=== PATIENT | female | born 1955 | race Caucasian/White ===

== ENCOUNTER → 2021-05-26 10:05 | Outpatient (CLI) | payer MEDICARE, BC, SELFPAY ==
--- NOTE | 2021-05-26 10:10 | MM_ITS ---
PROCEDURE INFORMATION: Exam: Bilateral Screening 3D Mammography Exam date and time: 05/26/2021 10:10 AM Age: 65 years old Clinical indication: Encounter for screening mammogram for malignant neoplasm of breast TECHNIQUE: Imaging protocol: Bilateral screening tomosynthesis and 2D mammography including computer-aided detection (CAD) when performed. COMPARISON: DIAGNOSTIC BILATERAL MAMMOGRAPHY W/ TOMOSYNTHESIS 06/21/2019 11:56 AM FINDINGS: MAMMOGRAPHY: Breast composition: The breast tissue is composed of scattered areas of fibroglandular density. Mass: None. Architectural distortion: None. Calcifications: Clustered calcifications in the posterior third of the right upper outer quadrant Asymmetric density: None. Skin thickening: None. Axillary adenopathy: None. IMPRESSION: Patient to be recalled for spot magnification views of the right breast in the CC and MLO projections for further evaluation of right breast calcifications. ASSESSMENT: BI-RADS Category 0: Incomplete- Need Additional Imaging Evaluation and/or Prior Mammograms for Comparison
== END ==
PROVIDERS: PCP Family Medicine; Visit Provider Family Medicine
DX: Z12.31 Encounter for screening mammogram for malignant neoplasm of breast (principal)
CPT/HCPCS: 77063; 77067

== ENCOUNTER → 2021-06-08 13:32 | Outpatient (CLI) | payer MEDICARE, BC, SELFPAY ==
--- NOTE | 2021-06-08 13:39 | MM_ITS ---
PROCEDURE INFORMATION: Exam: MG Right Diagnostic Breast Tomosynthesis Exam date and time: 06/08/2021 1:39 PM Age: 65 years old Clinical indication: Callback from screening mammogram for calcifications in the posterior right upper outer quadrant. TECHNIQUE: Imaging protocol: Right Diagnostic tomosynthesis and 2D mammography including computer-aided detection (CAD) when performed. Unilateral or bilateral exam. COMPARISON: 1. MG MM DIG SCREENING MAMM BI W/CAD 05/26/2021 10:06 AM 2. MG DIAGNOSTIC BILATERAL MAMMOGRAPHY W/ TOMOSYNTHESIS 06/21/2019 11:56 AM FINDINGS: MAMMOGRAPHY: The new, screening detected 0.5 cm grouping of calcifications in the right upper outer quadrant, posterior depth, appear pleomorphic on spot magnification views. Tissue sampling is recommended. IMPRESSION: Recommend right breast stereotactic core needle biopsy of a suspicious 0.5 cm grouping of pleomorphic calcifications in the posterior right upper outer quadrant. Biopsy specimen radiograph and post procedure diagnostic mammogram may be helpful to confirm adequate sample and biopsy clip placement. ASSESSMENT: BI-RADS Category 4: Suspicious
== END ==
PROVIDERS: PCP Family Medicine; Visit Provider Family Medicine
DX: R92.8 Other abnormal and inconclusive findings on diagnostic imaging of breast (principal)
CPT/HCPCS: 77061; 77065; G0279

== ENCOUNTER → 2021-07-06 09:07 | Outpatient (CLI) | payer MEDICARE, BC, SELFPAY ==
--- NOTE | 2021-07-06 09:08 | MM_ITS ---
FINAL REPORT CLINICAL HISTORY: . Right breast calcs prior mamm 06/08/21 FINDINGS: STEREOTACTIC GUIDED RIGHT BREAST BIOPSY, CLIP PLACEMENT, SPECIMEN RADIOGRAPH AND POST BIOPSY MAMMOGRAM Indication: Suspicious calcifications Findings: The stereotactic guided breast biopsy procedure was explained in detail to the patient including potential risk and benefits. The patient voiced an understanding of the procedure, was given an opportunity to ask questions, after which informed consent was obtained. The patient was positioned upon the stereotactic unit in the supine position. The breast was prepped in the usual sterile fashion. Subcutaneous soft tissues were anesthetized with lidocaine with epinephrine. Initial approach was from superior to inferior. Subsequently, with intermittent stereotactic guidance, the stereotactic biopsy needle was advanced into the breast in the region of the mammographic abnormality corresponding to recent diagnostic mammogram. Multiple vacuum assisted core samples were obtained. Post biopsy imaging and imaging of the initial specimen showed calcifications remaining within the breast. No calcifications were in is seen in the sample tissue. Biopsy was continued with a lateral to medial approach. The breast was prepped in routine sterile fashion and locally anesthetized with 1% lidocaine. Multiple vacuum assisted core biopsies were acquired. Sampling was thought to be adequate and the biopsy clip marker was deployed in the region of biopsy. Additional imaging as detailed below was performed. Specimen radiograph: Calcifications confirmed adequate within the 2nd set of specimens Post procedure routine CC and MLO view mammogram: Post biopsy changes. Biopsy marker clip noted to be in the appropriate location. Patient tolerated the procedure well. No immediatecomplications. IMPRESSION: 1. Technically successful stereotactic guided biopsy of right breast calcifications 2. Biopsy marker clip deployed 3. Post biopsy mammogram obtained as above If histopathology is benign, a short-term mammographic follow-up of the right breast in 6 months is recommended. Authenticated by Cal Kaur MD on 07/08/2021 02:45:55 PM [facility]
--- NOTE | 2021-07-06 09:13 | MM_ITS ---
FINAL REPORT CLINICAL HISTORY: . clip placement , s/p stereotactic bx FINDINGS: MAMMOGRAM RIGHT TECHNIQUE: Spot digital 2-D views with 3-D tomosynthesis COMPARISON: DENSITY: There are scattered areas of fibroglandular density FINDINGS: Post biopsy changes are seen within the right upper outer quadrant. A biopsy marker clip is noted in the right upper outer quadrant. This is in good position with calcifications no longer evident. There is some postbiopsy hemorrhage noted superficial along the biopsy tract. IMPRESSION: Post biopsy changes right breast without evidence of residual calcifications. Biopsy marker clip in good position. RECOMMENDATION: Pending histopathology results. If pathology is benign short-term mammographic follow-up recommended in 6 months. Authenticated by Cal Kaur MD on 07/08/2021 02:42:40 PM [facility]
--- NOTE | 2021-07-06 09:13 | MM_ITS ---
FINAL REPORT CLINICAL HISTORY: . specimen, s/p stereo bx FINDINGS: Specimen radiograph History: Stereotactic biopsy Findings: 2 separate specimen radiographs were acquired following stereotactic biopsy of right breast. Examination shows the calcifications of interest within 2 of the core specimens. This corresponded to the 2nd set of specimen radiographs. IMPRESSION: Calcifications of interest contained within specimen radiograph Authenticated by Cal Kaur MD on 07/08/2021 02:38:55 PM [facility]
== END ==
PROVIDERS: PCP Family Medicine; Visit Provider Surgery
DX: R92.8 Other abnormal and inconclusive findings on diagnostic imaging of breast (principal)
CPT/HCPCS: 19081; 19082; 76098; 77065; 88305

== ENCOUNTER → 2021-12-24 13:41 | Outpatient (CLI) | payer MEDICARE, BC, SELFPAY ==
--- NOTE | 2021-12-24 13:41 | MM_ITS ---
PROCEDURE INFORMATION: Exam: MG Right Diagnostic Breast Tomosynthesis Exam date and time: 12/24/2021 1:39 PM Age: 65 years old Clinical indication: Short-term radiographic followup; Right breast TECHNIQUE: Imaging protocol: Right Diagnostic tomosynthesis and 2D mammography including computer-aided detection (CAD) when performed. Unilateral or bilateral exam. COMPARISON: 1. MG MM CLIP PLACEMENT RT 07/06/2021 10:42 AM 2. MG MM SURGICAL SPECIMEN RT 07/06/2021 10:42 AM FINDINGS: MAMMOGRAPHY: The breast tissue is composed of scattered areas of fibroglandular density. There is no stellate mass, architectural distortion or suspicious microcalcifications to suggest malignancy. A clip alexander the site of prior biopsy in the right upper outer quadrant. No skin thickening or axillary adenopathy. IMPRESSION: No mammographic evidence of malignancy. Correlation with histology is recommended.Annual bilateral mammographic screening is recommended in 6 months if the biopsy was benign ASSESSMENT: BI-RADS Category 1: Negative
== END ==
PROVIDERS: PCP Family Medicine; Visit Provider Surgery
DX: R92.8 Other abnormal and inconclusive findings on diagnostic imaging of breast (principal)
CPT/HCPCS: 77061; 77065; G0279

== ENCOUNTER 2022-06-05 20:04 | Inpatient (IN) | payer MEDICARE, BC, SELFPAY ==
[2022-06-05] VITALS (7 sets, daily range): BP systolic 157–219; BP diastolic 93–138; PULSE 66–88; RESP 14–18; TEMP 36.6; O2SAT 96–98; BMI 21.6
--- NOTE | 2022-06-05 20:07 | HMH.EDGENADL ---
Discharge Plan Disposition Patient Disposition: Admitted As Inpatient Condition: Fair Chief Complaint: Headache Prescriptions Prescriptions: No Action atorvastatin 10 mg tablet 10 mg PO DAILY Label Comments: TAKE 1 TABLET BY MOUTH ONCE DAILY FOR 90 DAYS alendronate 70 mg tablet 70 mg PO WEEKLY Label Comments: TAKE 1 TABLET BY MOUTH ONCE A WEEK lisinopril 10 mg tablet 10 mg PO DAILY Label Comments: TAKE 1 TABLET BY MOUTH ONCE DAILY Referrals Follow up/Referrals: Daniela Jones MD [Primary Care Provider] - See instructions Clinical Impressions Clinical Impression: Non-ST elevation (NSTEMI) myocardial infarction, Headache Discharge ED Provider: Skip Smiley General Adult HPI General Chief complaint: Headache Stated complaint: RAMÍREZ nausa,BP high Time Seen by Provider: 06/05/22 20:07 History of Present Illness HPI narrative: 66-year-old female, history of hypertension, well controlled on lisinopril 10 mg. She presents today with sudden onset occipital headache rated as 10 out of 10 at onset currently 7 out of 10. No treatments prior to arrival though she did take ibuprofen earlier for her back which was hurting. She is not on anticoagulant. She does have a family history of spontaneous intracerebral hemorrhage, her mother had this at 59 and . She denies blurry or double vision, vomiting but does report some nausea. Denies neck pain, fevers or any head trauma. Related Data Home Medications Medication Instructions Recorded Confirmed alendronate 70 mg tablet 70 mg PO WEEKLY bones 06/05/22 06/05/22 atorvastatin 10 mg tablet 10 mg PO DAILY High cholesterol 06/05/22 06/05/22 lisinopril 10 mg tablet 10 mg PO DAILY High blood pressure 06/05/22 06/05/22 Allergies Allergy/AdvReac Type Severity Reaction Status Date / Time No Known Allergies Allergy Verified 07/19/21 10:11 [facility] Disclaimer: The information contained in this section may have been updated after the patient was seen, as this information can be updated by other users. Social History Smoking Status: Never smoker alcohol intake: never substance use type: denies use current occupational status: other Travel in the last 8 weeks: None ROS Obtained: Yes All systems reviewed & no additional complaints except as documented Physical Exam General General appearance: alert and in no apparent distress Head Head exam: atraumatic, normocephalic and normal inspection Eye Eye exam: Present normal appearance, PERRL and EOMI ENT ENT exam: Present normal exam, normal oropharynx, mucous membranes moist, TM's normal bilaterally and normal external ear exam Neck Neck exam: Present normal inspection, full ROM and trachea midline; Absent meningismus or lymphadenopathy Chest Chest inspection: Present normal inspection and symmetric chest wall rise; Absent tenderness Respiratory Respiratory exam: Present normal lung sounds bilaterally; Absent respiratory distress Cardiovascular Cardiovascular exam: Present regular rate and normal rhythm; Absent JVD Abdominal Exam Abdominal exam: Present soft and normal bowel sounds; Absent distention, tenderness or guarding Extremities Exam Extremities exam: Present normal inspection, full ROM and normal capillary refill; Absent calf tenderness Back Exam Back exam: Present normal inspection; Absent tenderness Neurological Exam Neurological exam: Present alert and oriented X3 Psychiatric Psychiatric exam: Present normal affect and normal mood Skin Skin exam: Present warm, dry, intact and normal color Lymphatic Lymphatic Findings: no adenopathy Medical Decision Making Medical Records Medical records reviewed: Yes I reviewed the patient's medical records. [place] Inquiry Pt receiving controlled substance: No Vital Signs: 06/05/22 20:15 06/05/22 20:24 06/05/22 20:29 Temperature 98 F 98 F Temperature Sourc
--- NOTE | 2022-06-05 20:14 | PC.NURSE ---
called radiology, would like CT head STAT.
--- NOTE | 2022-06-05 20:14 | ECG_ITS ---
APPROVED REPORT Exam: Resting ECG HR:84 bpm ECG Measurements Heart Rate 84 AXES NM 152 P 75 QRSd 92 QRS 56 QT 370 T 14 QTc 411 Conclusion SINUS RHYTHM POSSIBLE RIGHT ATRIAL ENLARGEMENT [0.25mV P-WAVE] ST DEVIATION AND MODERATE T-WAVE ABNORMALITY, CONSIDER INFERIOR ISCHEMIA [-0.1+ mV T-WAVE IN II/aVF] ABNORMAL ECG UNCONFIRMED REPORT Electronically signed by : Tomas Mccain MD 06/06/2022 21:46:12
--- NOTE | 2022-06-05 20:14 | CT_ITS ---
PROCEDURE INFORMATION: Exam: CT Head Without Contrast Exam date and time: 06/05/2022 8:21 PM Age: 66 years old Clinical indication: Stroke-like symptoms; Headache; Additional info: Head injury, headache posterior , elevated BP TECHNIQUE: Imaging protocol: Computed tomography of the head without contrast. Radiation optimization: All CT scans at this facility use at least one of these dose optimization techniques: automated exposure control; mA and/or kV adjustment per patient size (includes targeted exams where dose is matched to clinical indication); or iterative reconstruction. Other technique: STROKE PROTOCOL was implemented. COMPARISON: No relevant prior studies available. FINDINGS: Brain: There is no evidence of infarct. There is no hemorrhage or extra-axial collection. There is no evidence of subarachnoid hemorrhage. There is no evidence of cerebral edema. Cerebral ventricles: There is no hydrocephalus. Paranasal sinuses: Visualized sinuses are unremarkable. No fluid levels. Mastoid air cells: There is extensive opacification of the right mastoid air cells. No coalescence or bone erosion. Bones/joints: No fracture Soft tissues: Unremarkable. IMPRESSION: No intracranial lesion or injury ASSESSMENT: ASPECTS (Strum Stroke Program Early CT Score) is 10.
--- NOTE | 2022-06-05 20:14 | XR_ITS ---
PROCEDURE INFORMATION: Exam: XR Chest Exam date and time: 06/05/2022 8:36 PM Age: 66 years old Clinical indication: Pain; Chest pressure; Additional info: Sob/cp TECHNIQUE: Imaging protocol: Radiologic exam of the chest. Views: 1 view. COMPARISON: No relevant prior studies available. FINDINGS: Lungs: Unremarkable. No consolidation. Pleural spaces: Unremarkable. No pleural effusion. No pneumothorax. Heart/Mediastinum: Unremarkable. No cardiomegaly. Bones/joints: Unremarkable. IMPRESSION: No acute findings.
--- NOTE | 2022-06-05 20:24 | PC.NURSE ---
Pt gone to RAD
--- NOTE | 2022-06-05 20:26 | PC.NURSE ---
Pt back from RAD
[2022-06-05 20:33] LABS: Coronavirus 19, PCR Not Detected (NotDetected); Influenza A, PCR Not Detected (NotDetected); Influenza B, PCR Not Detected (NotDetected)
--- NOTE | 2022-06-05 20:36 | PC.NURSE ---
Patient given 10mg labetolol IV. Patient tolerated the medication well.
[2022-06-05 20:37] LABS: Basophils # 0.1 K/mm3 (0-0.2); Basophils % 0.9 % (0.1-2.0); Eosinophils # 0.2 K/mm3 (0.0-0.4); Eosinophils % 2.6 % (0.1-12.0); Hematocrit 44.7 % (37.0-47.0); Hemoglobin 14.7 g/dL (12.2-16.2); Lymphocytes # 2.8 K/mm3 (0.7-4.5); Lymphocytes % 31.9 % (10-50); Mean Corpuscular HGB Conc 32.9 g/dL (31.8-35.4); Mean Corpuscular Hemoglobin 31.7 pg (27.0-31.2); Mean Corpuscular Volume 96.2 fl (81-99); Mean Platelet Volume 8.1 fl (7.4-10.4); Monocytes # 0.5 K/mm3 (0.1-1.0); Monocytes % 6.1 % (1.7-9.3); Neutrophils # 5.2 K/mm3 (1.8-7.8); Neutrophils % 58.6 % (37.0-80.0); Platelet Count 303 K/mm3 (142-424); Red Blood Count 4.65 M/mm3 (4.20-5.40); Red Cell Distribution Width 13.2 % (11.5-17.5); White Blood Count 8.9 K/mm3 (4.8-10.8)
[2022-06-05 20:40] LABS: Chloride 103 mmol/L (98-107); Potassium 3.4 mmoL/L (3.5-5.1); Sodium 141 mmol/L (136-145)
[2022-06-05 20:42] LABS: Blood Urea Nitrogen 15 mg/dl (7-17); Creatinine Clearance Estimated 52 mL/min (50-200); Estimated Glomerular Filt Rate 84 ml/min (>60); GFR (African American) 101 ML/MIN (>60)
[2022-06-05 20:43] LABS: Alanine Aminotransferase 27 U/L (12-78); Albumin Level 4.7 g/dl (3.5-5.0); Albumin/Globulin Ratio 1.4 (1.1-1.8); Alkaline Phosphatase 75 U/L (38-126); Anion Gap 12.4 mEq/L (5-15); Aspartate Amino Transferase 33 U/L (14-36); Bilirubin,Total 0.4 mg/dl (0.2-1.3); Calcium 9.4 mg/dl (8.4-10.2); Carbon Dioxide 29 mmol/L (22.0-30.0); Globulin 3.4 g/dL (1.3-3.2); Glucose 115 mg/dl (74-100); Total Protein,Serum 8.1 g/dl (6.3-8.2)
[2022-06-05 20:55] LABS: Troponin I 0.03 ng/ml (0.00-0.034)
--- NOTE | 2022-06-05 21:45 | PC.NURSE ---
Rechecked pt condition. No needs or complaints voiced at this time.
--- NOTE | 2022-06-05 22:34 | PC.NURSE ---
Pt ambulatory to bathroom and back to bed. Pt updated on POC. No needs voiced at this time.
--- NOTE | 2022-06-05 23:23 | ECG_ITS ---
APPROVED REPORT Exam: Resting ECG HR:73 bpm ECG Measurements Heart Rate 73 AXES TX 163 P 77 QRSd 93 QRS 72 QT 412 T 82 QTc 437 Conclusion SINUS RHYTHM POSSIBLE RIGHT ATRIAL ENLARGEMENT [0.25mV P-WAVE] BORDERLINE ECG UNCONFIRMED REPORT Electronically signed by : Tomas Mccain MD 06/07/2022 19:13:08
[2022-06-05 23:24] LABS: Troponin I 1.49 ng/ml (0.00-0.034)
--- NOTE | 2022-06-05 23:25 | PC.NURSE ---
Rodney from lab called critical troponin of 1.49. notified.
--- NOTE | 2022-06-05 23:29 | PC.NURSE ---
Dr. Cassidy paged
--- NOTE | 2022-06-05 23:30 | PC.NURSE ---
Dr. Smiley speaking with Dr. Cassidy
--- NOTE | 2022-06-05 23:40 | PC.NURSE ---
Both EKG's sent to Dr. Cassidy via [facility]I phone
--- NOTE | 2022-06-05 23:52 | PC.NURSE ---
Dr. Smiley s/w Dr. Cassidy regarding pt & the transmitted EKGs
[2022-06-06] VITALS (23 sets, daily range): BP systolic 115–159; BP diastolic 74–109; PULSE 60–77; RESP 15–20; TEMP 36.4–36.7; O2SAT 93–100; BMI 22.0
--- NOTE | 2022-06-06 00:35 | PC.NURSE ---
Hospitalist at bedside s/w pt
--- NOTE | 2022-06-06 01:04 | EXP.HP ---
History of Present Illness *Admission Date: 06/06/22 *Reason for visit:: Mi . chest pain *History of present illness: Ms. Manzo is a 66-year-old female, history of hypertension, well controlled on lisinopril 10 mg per her report. Presented with complaint of sudden onset of occipital headache. No treatment prior to returning to the ER. Was concerned because her mother from intracranial hemorrhage in her 50s. Patient denied any chest pain, shortness of breath, nausea or vomiting. No head trauma, fever, neurologic deficits. Blood pressure severely elevated on arrival 213/123. EKG with ST segment changes. CT of head not concerning for any intracranial pathology. Initial troponin 0.03. Medicine consulted for admission of hypertensive emergency, serial troponins, and monitoring overnight. Cardiology consulted, concern for proximal LAD lesion given severe hypertension and changes on EKG. Recommended admission. Blood pressure showed improvement with labetalol, nitroglycerin, and resumption of home regimen. [facility] Disclaimer: The information contained in this section may have been updated after the patient was seen, as this information can be updated by other users. Medical History Hyperlipidemia Hypertension Irritable bowel syndrome (IBS) Migraine Urinary tract infection Surgical History History of colonoscopy History of mandibular surgery History of placement of ear tubes Family History Family history of acute congestive heart failure Family history of cancer Breast cancer Family history of hypertension Family history of hypothyroidism Family history of diabetes mellitus type II Family history of multiple sclerosis Family history of myocardial infarction Family history of hyperlipidemia Social History Smoking Status: Never smoker alcohol intake: never substance use type: denies use current occupational status: retired Travel in the last 8 weeks: None Review of Systems Review of Systems Review of systems (narrative): 14 point review of systems performed, pertinent positives and negatives as per HPI Constitutional Constitutional: Reports system reviewed and no additional complaints, except as documented and Reports headache(s) Eyes Eyes: Reports system reviewed and no additional complaints, except as documented ENT Ears, Nose, Mouth, and Throat: Reports system reviewed and no additional complaints, except as documented and Reports headache(s) *Cardiovascular Cardiovascular: Reports chest pain and Reports chest pain at rest *Respiratory Respiratory: Reports system reviewed and no additional complaints, except as documented *Gastrointestinal Gastrointestinal: Reports system reviewed and no additional complaints, except as documented *Genitourinary Genitourinary: Reports system reviewed and no additional complaints, except as documented *Musculoskeletal Musculoskeletal: Reports system reviewed and no additional complaints, except as documented Integumentary/Breasts Skin/Breast: Reports system reviewed and no additional complaints, except as documented *Neurologic Neurologic: Reports headache(s) Comments: only symptom at first headache , now some light chest pressure Psychiatric Psychiatric: Reports system reviewed and no additional complaints, except as documented Comments: having no issues Endocrine Endocrine: Reports system reviewed and no additional complaints, except as documented Hematologic/Lymphatic Hematologic/Lymphatic: Reports system reviewed and no additional complaints, except as documented Allergic/Immunologic Allergic/Immunologic: Reports system reviewed and no additional complaints, except as documented Meds Home Medications and Allergies Home Medications Medication Instruc
--- NOTE | 2022-06-06 01:06 | PC.NURSE ---
pt educated on new medications: Plavix, Nitro paste, Tylenol, and Lovenox.
[2022-06-06 02:33] LABS: Troponin I 2.34 ng/ml (0.00-0.034)
[2022-06-06 06:49] LABS: Basophils # 0.1 K/mm3 (0-0.2); Basophils % 0.6 % (0.1-2.0); Eosinophils # 0.1 K/mm3 (0.0-0.4); Eosinophils % 1.2 % (0.1-12.0); Hematocrit 40.4 % (37.0-47.0); Lymphocytes % 21.8 % (10-50); Mean Corpuscular HGB Conc 32.7 g/dL (31.8-35.4); Mean Corpuscular Hemoglobin 31.9 pg (27.0-31.2); Mean Corpuscular Volume 97.3 fl (81-99); Mean Platelet Volume 8.1 fl (7.4-10.4); Monocytes # 0.6 K/mm3 (0.1-1.0); Monocytes % 6.4 % (1.7-9.3); Neutrophils # 6.3 K/mm3 (1.8-7.8); Neutrophils % 70.1 % (37.0-80.0); Platelet Count 307 K/mm3 (142-424); Red Blood Count 4.15 M/mm3 (4.20-5.40); Red Cell Distribution Width 13.2 % (11.5-17.5)
--- NOTE | 2022-06-06 06:53 | HMH.PHAINT1 ---
Pharmacy Intervention Comments: MEDICATION RECONCILIATION COMPLETED ON PATIENT USING EXTERNAL FILL HISTORY FROM PHARMACY. -PADMINI MACDONALD, SAMD
[2022-06-06 06:59] LABS: Hemoglobin 13.2 g/dL (12.2-16.2)
[2022-06-06 07:15] LABS: Alanine Aminotransferase 23 U/L (12-78); Albumin/Globulin Ratio 1.5 (1.1-1.8); Alkaline Phosphatase 61 U/L (38-126); Anion Gap 9.5 mEq/L (5-15); Aspartate Amino Transferase 41 U/L (14-36); Bilirubin,Total 0.4 mg/dl (0.2-1.3); Blood Urea Nitrogen 13 mg/dl (7-17); Calcium 8.5 mg/dl (8.4-10.2); Carbon Dioxide 29 mmol/L (22.0-30.0); Chloride 105 mmol/L (98-107); Creatinine Clearance Estimated 52 mL/min (50-200); Estimated Glomerular Filt Rate 84 ml/min (>60); GFR (African American) 101 ML/MIN (>60); Globulin 2.7 g/dL (1.3-3.2); Glucose 122 mg/dl (74-100); Potassium 3.5 mmoL/L (3.5-5.1); Sodium 140 mmol/L (136-145); Total Protein,Serum 6.7 g/dl (6.3-8.2)
--- NOTE | 2022-06-06 07:27 | EXP.CARD.CON ---
History of Present Illness History of Present Illness Consult date: 06/06/22 Requesting physician: Marcos Bailon Consult reason: chest pain Chief complaint: NSTEMI Additional Medical History:: 1. Hypertension 2. Hyperlipidemia 3. History of migraine headache 4. Family history of early heart disease in her brother who at age 49 and her father (both smokers) 6. CAD with presenting non-STEMI, 06/05/2022 7. Irritable bowel syndrome History of present illness: 66-year-old female, not on anticoagulation, presents with complaints of sudden onset occipital headache approximately 10 out of 10 at onset, currently 7 out of 10, no treatments prior to arrival.? She states she was leaving judaism and felt headache come on suddenly.? She does report getting migraines periodically although this feels different in nature and severity.? She is noted to be markedly hypertensive and usually is Well controlled on lisinopril 10.? She denies chest pain, shortness of breath or other symptoms, findings do raise concern for spontaneous anterior cranial hemorrhage such as subarachnoid especially given that patient has family history of cerebral aneurysm and spontaneous ICH in her mother at 59 years old.? EKG does demonstrate some ST segment and T wave changes prominent Q-wave in V2 with some elevation although not in contiguous leads, there is diffuse ST depression noted.? Monitoring blood pressure closely, notified CT to obtain scan expeditiously and she is going shortly after my assessment.? Also assessing for any signs of hypertensive emergency.? With hypertension she has not noted to be markedly bradycardic so do not think [place] reflex.? She additionally has a GCS of 15 and is in no acute distress currently has no focal neurologic deficits or subjective deficits such as blurry or double vision or sensory issues.? I reviewed head CT immediately upon completion do not see any evidence of subdural or large subarachnoid.? Blood pressure was approximately 213/123 heart rate is 84, given 2 mg of IV labetalol we will continue to monitor 2034, spoke with radiologist to confirm no evidence of subarachnoid hemorrhage or any other acute pathology 8: Patient doing well headache improved, blood pressure significantly improved, no active chest pain, given EKG changes had waited on second troponin which was markedly elevated.? Patient still doing well without chest pain, repeated EKG which appears improved relative to previous but does exhibit dynamic changes, she is developing biphasic T waves in V1 only, still some ST depression no acute ST elevation and the mild elevation and prominent T wave in V2 appears to have resolved.? Given this, raises higher suspicion for acute coronary syndrome despite the absence of chest pain.? I discussed case with Dr. Cassidy who reviewed the EKGs as well, and there is concern about lesion to the left anterior descending artery which can sometimes present with adrenergic crisis markedly elevated blood pressure which obscured the initial picture.? She had been given 324 mg of aspirin, will also load with 300 mg platelet, initiate treatment dose Lovenox twice daily, and start on high intensity statin.? Will refer for admission to the hospitalist, plan is for heart catheterization in the morning. The above per Skip Smiley MD (ER physician) Events as noted above confirmed with the patient. She does relate in retrospect some pressure or heaviness in the chest recently described as like a cat, dog her small child was laying on the chest. No chest pain this morning. She still has a mild headache rated as a 4 out of 10. Longtime hypertensive, treated Hyperlipidemia, on medication Non-smoker Nondiabetic Family history of early coronary artery disease in both her father and brother Admission EKG is sinus rhythm with Biphasic P wave in V1, isolated Q wave in V2 and ST-T abnormalities in the inferior lateral leads. Peak troponin at this time noted to be 2.34 PFSH PFSH D
--- NOTE | 2022-06-06 07:51 | CA_ITS ---
APPROVED REPORT EXAM: Comprehensive 2D, Doppler, and color-flow Echocardiogram [employer]wall Security Engineer: Sierra Tafoya RVT Ht: 5 ft 4 in Wt: 132lbs BSA: 1.64 BP: 115/84 mmHg Indications: NSTEMI,HTN,BRADYCARDIA,CAD,HLD 2D Dimensions LVOT 1.79 cm (M/F) 1.5-2.5 LA Volume 16.70 mL LA Volume Index 10.18 mL/m2 (M/F) 16-34 M-Mode Dimensions RVDd 2.43 cm (0.9-2.6) LA Diam 2.82 cm (1.9-4.0) LVDd 3.96 cm (3.5-5.7) Ao Diam 3.03 cm (2.0-3.7) LVDs 1.75 cm (3.5-5.7) IVSd 1.00 cm (0.6-1.1) PWd 0.82 cm (0.6-1.1) EF (Teich) 86.80% FS 55.80% EDV (Teich) 68.30 mL TAPSE 2.09 (<1.7) ESV (Teich) 9.00 mL LV Diastology E Decel Time 217.00 (160-240 msec) E/A Ratio 0.7 MED E' 4.80 (< 7 cm/sec) E'/MED E' Ratio 15.37 (>14) LAT E' 4.70 (<10 cm/sec) E/LAT E' Ratio 15.70 (>14) Aortic Valve AO Peak GR. 6.00 mmHg Mitral Valve MV E Max Robert. 74.00 (40-130 cm/s) MV A Velocity 101.00 (40-130 cm/s) E/A Ratio 0.73 MV Decel. Time 217.00 (160-240 ms) MV PHT 63.00 ms Pulmonary Valve PV Peak Velocity 83.00 (50-150 cm/s) Tricuspid Valve TR P. Velocity 308.00 cm/s RAP Estimate 10.00 mmHg RVSP 48.00 mmHg Left Ventricle Left atrium is mildly enlarged, left ventricle normal size mild concentric left ventricular hypertrophy, estimated ejection fraction approximately 50%, there is moderate hypokinesis involving the mid to distal septum, and anterior apical wall. Doppler evidence of impaired LV relaxation seen. Right Ventricle Right atrium and right ventricle are normal size and contractility. Aortic Valve Aortic valve is minimally thickened and fibrosed there is no aortic stenosis or aortic insufficiency. Mitral Valve Mitral valve grossly normal, there is trace mitral regurgitation. Tricuspid Valve Tricuspid valve grossly normal, there is trace tricuspid regurgitation, tricuspid regurgitation jet velocity is inadequate for calculation of the right ventricular systolic pressure. Pulmonic Valve Pulmonic valve is poorly visualized. Great Vessels Aortic root is normal size. Inferior vena cava is normal size with normal inspiratory collapse. Pericardium No significant pericardial effusion noted. Conclusion 1. Normal left ventricular size, estimated ejection fraction 50% with segmental wall motion abnormality described above, without evidence of impaired LV relaxation seen 2. Trace mitral and tricuspid regurgitation. 3. No significant pericardial effusion noted. 4. Inferior vena cava is normal size with normal inspiratory collapse. Electronically signed by : David Browning MD 06/07/2022 06:21:00
[2022-06-06 07:55] LABS: Cholesterol 202 mg/dl (140-200); HDL Cholesterol 99 mg/dl (40-60); Triglycerides 54 mg/dl (30-150); VLDL Cholesterol 11 mg/dL (0-40)
[2022-06-06 08:06] LABS: Direct LDL Cholesterol 61.97 mg/dL (100-129)
--- NOTE | 2022-06-06 08:40 | IR_ITS ---
APPROVED REPORT Patient Location: [facility] Operator: JANAE Ge RT (R) PROCEDURES Left heart catheterization Left ventriculogram Selective coronary angiogram INDICATION Acute non-ST elevation myocardial infarction Informed consent was obtained prior to the procedure. COMPLICATIONS None Estimated Blood Loss: Less than 10 ML TECHNIQUE One percent lidocaine used to anesthetize the right anterior aspect of the wrist. The right radial artery was accessed via the Seldinger technique. A 6 Ivorian sheath was placed in the right radial artery. 2.5 mg of verapamil, 800 mcg of nitroglycerin, 1mg Lidocaine and 5000 U Heparin were given through the arterial sheath. The papa catheter was also used to perform left heart catheterization, left ventriculogram and selective coronary angiogram. At the end of the procedure the sheath was removed good hemostasis was achieved using Traclet band, patient was transferred to the postop holding area in stable condition. ANGIOGRAPHIC RESULTS The left main artery Normal The left anterior descending artery Normal The circumflex artery Normal The right coronary artery Dominant normal The WRIGHT ventriculogram reveals Large anterior apical hypokinesis estimate ejection fraction 25 to 30% The left ventricular end-diastolic pressure 25 mmHg IMPRESSION Normal coronary arteries Large anterior apical hypokinesis consistent with classic Takotsubo cardiomyopathy/stress cardiomyopathy Elevated LVEDP PLAN 1. Recommend echocardiogram to better evaluate ejection fraction. If ejection fraction is 35% or less based on echo criteria I would consider LifeVest prior to discharge home 2. Supportive care recommend EWA inhibitor's and beta-blockers Electronically signed by : Carlos Cassidy MD 06/06/2022 11:11:57
[2022-06-07] VITALS: BP 127/81; PULSE 66; PULSE 70; RESP 16; TEMP 36.8; O2SAT 95
[2022-06-07 04:00] VITALS: BP 116/79; PULSE 73; RESP 16; TEMP 36.8; O2SAT 97; BMI 22.5
--- NOTE | 2022-06-07 07:00 | PC.NURSE ---
Pt tegaderm on right radial site had a moderate amount of dried blood on it at beginning of shift. Blood was outlined to monitor. Pt was encouraged to call out if site bled more. On next q2 check the 4x4 had slightly more blood on it. Dsg was reinforced at this time. No c/o have been voiced to staff t/o shift. Call light within reach.
[2022-06-07 07:46] LABS: Basophils # 0.1 K/mm3 (0-0.2); Basophils % 1.1 % (0.1-2.0); Eosinophils # 0.1 K/mm3 (0.0-0.4); Hematocrit 42.6 % (37.0-47.0); Hemoglobin 14.2 g/dL (12.2-16.2); Lymphocytes # 1.9 K/mm3 (0.7-4.5); Lymphocytes % 28.5 % (10-50); Mean Corpuscular HGB Conc 33.4 g/dL (31.8-35.4); Mean Corpuscular Hemoglobin 31.8 pg (27.0-31.2); Mean Corpuscular Volume 95.1 fl (81-99); Mean Platelet Volume 8.2 fl (7.4-10.4); Monocytes # 0.5 K/mm3 (0.1-1.0); Monocytes % 7.7 % (1.7-9.3); Neutrophils # 4.1 K/mm3 (1.8-7.8); Neutrophils % 60.7 % (37.0-80.0); Platelet Count 304 K/mm3 (142-424); Red Blood Count 4.47 M/mm3 (4.20-5.40); Red Cell Distribution Width 13.2 % (11.5-17.5); White Blood Count 6.7 K/mm3 (4.8-10.8)
[2022-06-07 07:52] LABS: Alanine Aminotransferase 19 U/L (12-78); Albumin/Globulin Ratio 1.4 (1.1-1.8); Alkaline Phosphatase 59 U/L (38-126); Anion Gap 9.7 mEq/L (5-15); Aspartate Amino Transferase 32 U/L (14-36); Bilirubin,Total 0.5 mg/dl (0.2-1.3); Blood Urea Nitrogen 16 mg/dl (7-17); Calcium 8.7 mg/dl (8.4-10.2); Carbon Dioxide 27 mmol/L (22.0-30.0); Chloride 106 mmol/L (98-107); Creatinine Clearance Estimated 54 mL/min (50-200); Estimated Glomerular Filt Rate 72 ml/min (>60); GFR (African American) 87 ML/MIN (>60); Globulin 2.8 g/dL (1.3-3.2); Glucose 93 mg/dl (74-100); Potassium 3.7 mmoL/L (3.5-5.1); Sodium 139 mmol/L (136-145); Total Protein,Serum 6.8 g/dl (6.3-8.2)
[2022-06-07 08:00] VITALS: BP 107/77; PULSE 76; PULSE 84; RESP 18; TEMP 37.1; O2SAT 95
--- NOTE | 2022-06-07 10:05 | EXP.CARD.PN ---
Subjective Subjective Date: 06/07/22 Time: 08:30 Principal diagnosis: non-stemi Interval history: This is a 66-year-old white female who presented to the emergency department with headache. She denied any chest pain, pressure, shortness of breath or edema initially. She had an abnormal EKG and had positive troponins. And then later reported that she had some pressure or heaviness in her chest that she described like a cat or dog or may be a small child laying on her chest. The patient underwent left cardiac catheterization yesterday and this showed normal coronary arteries with a large anterior apical hypokinesis with an estimated ejection fraction of 25 to 30% and elevated LVEDP 25 mmHg. Echocardiogram shows an ejection fraction of 50%. This morning she denies any chest pain or pressure. She denies any shortness of breath or edema. She denies any fever, chills, nausea, vomiting, diarrhea, PND or orthopnea. Exam Data for Last 24 hours Vital signs and Labs for Last 24 Hours: Temp Pulse Resp BP Pulse Ox 98.7 F 84 18 107/77 L 95 06/07/22 08:00 06/07/22 08:00 06/07/22 08:00 06/07/22 08:00 06/07/22 08:00 Laboratory Results - last 24 hr 06/07/22 07:14: WBC 6.7 D, RBC 4.47, Hgb 14.2, Hct 42.6, MCV 95.1, MCH 31.8 H, MCHC 33.4, RDW 13.2, Plt Count 304, MPV 8.2, Neut % (Auto) 60.7, Lymph % (Auto) 28.5, [place] % (Auto) 7.7, Eos % (Auto) 2.0, Baso % (Auto) 1.1, Neut # (Auto) 4.1, Lymph # (Auto) 1.9, [place] # (Auto) 0.5, Eos # (Auto) 0.1, Baso # (Auto) 0.1 06/07/22 07:14: Sodium 139, Potassium 3.7, Chloride 106, Carbon Dioxide 27, Anion Gap 9.7, BUN 16, Creatinine 0.80, Estimated Creat Clear 54, Estimated GFR 72, Est GFR ( Amer) 87, Glucose 93, Calcium 8.7, Magnesium 2.0, Total Bilirubin 0.5, AST 32, ALT 19, Alkaline Phosphatase 59, Total Protein 6.8, Albumin 4.0, Globulin 2.8, Albumin/Globulin Ratio 1.4 I & O for Last 24 hours: Intake & Output 06/04/22 06/05/22 06/06/22 06/07/22 23:59 23:59 23:59 23:59 Intake Total 360 / 360 360 / 360 Output Total 552 / 552 Balance -192 / -192 360 / 360 Weight 130 lb 132 lb 7 oz 135 lb 3.2 oz Narrative: Telemetry strip is sinus rhythm. Constitutional Constitutional: no acute distress and average body habitus *Routine HEENT Exam Head: Present normocephalic and atraumatic ENT: Present mucous membranes moist *Routine Neck Exam Neck: Present supple, full ROM and normal carotid upstroke; Absent JVD, carotid bruit or lymphadenopathy *Routine Respiratory Exam Respiratory: Present CTA bilaterally, normal respiratory effort, able to speak in complete sentences and symmetric chest movement *Routine Cardiovascular Exam Cardiovascular: Present RRR, Normal S1 and Normal S2; Absent murmur or gallop *Routine Abdominal Exam Abdominal: Present soft and normoactive bowel sounds; Absent tenderness, distended or organomegaly *Routine Extremities Exam Extremities: Present full ROM, pulses intact and normal capillary refill; Absent cyanosis, clubbing or edema *Routine Skin Exam Skin: Present intact and warm; Absent erythema *Routine Neurological Exam Neurological: Present alert, oriented X3 and CN II-XII intact; Absent sensory deficit or motor deficit Routine Psychiatric Exam Psychiatric: Present normal affect Progress Note: A&P Assessment and plan (1) Hypertension: Status: Acute (2) Non-ST elevation (NSTEMI) myocardial infarction: Status: Acute (3) Headache: Status: Acute (4) Hyperlipidemia: Status: Acute (5) Takotsubo syndrome: Status: Acute Assessment and Plan Assessment and Plan for All Diagnoses:: Plan: 1. This is a 66-year-old female who is status post non-STEMI. She underwent left cardiac catheterization which showed normal coronary arteries with large anterior apical hypokinesis consistent with Takotsubo's cardiomyopathy. No percutaneous intervention was required. Patient will be on aspirin 81 mg daily. 2. Echocardiogram showed an ejection fra
--- NOTE | 2022-06-07 10:09 | EXP.DC.SUM ---
General Admission date:: 06/06/22 Discharge date: 06/07/22 HPI HPI HPI: Ms. Manzo is a 66-year-old female, history of hypertension, well controlled on lisinopril 10 mg per her report. Presented with complaint of sudden onset of occipital headache. No treatment prior to returning to the ER. Was concerned because her mother from intracranial hemorrhage in her 50s. Patient denied any chest pain, shortness of breath, nausea or vomiting. No head trauma, fever, neurologic deficits. Blood pressure severely elevated on arrival 213/123. EKG with ST segment changes. CT of head not concerning for any intracranial pathology. Initial troponin 0.03. Medicine consulted for admission of hypertensive emergency, serial troponins, and monitoring overnight. Cardiology consulted, concern for proximal LAD lesion given severe hypertension and changes on EKG. Recommended admission. Blood pressure showed improvement with labetalol, nitroglycerin, and resumption of home regimen. Hospital Course Hospital Course Hospital Course: The patient is admitted to the medical floor with cardiology consultation. Her troponin trend was positive. Her laboratory studies including CBC and BMP were trended and identified stability. She underwent left heart cath on June 06, 2022 that identified no intervention necessary and concerns with diminished ejection fraction of 35% on the anterior component of her LV. Her echocardiogram identified an ejection fraction of 50%. The patient identified improvement in her headache and staff reported improved blood pressures. She identified improvement and inquired about discharge home. On day of discharge she is accompanied by her and sister. I am accompanied by several members of the multidisciplinary rounds team. She reports no needs at home. Cardiology has recommended discharge medications. She is to follow-up with her PCP in 1 week and cardiology as a scheduled. Exam Data for Last 24 hours Vital signs and Labs for Last 24 Hours: Temp Pulse Resp BP Pulse Ox 98.7 F 84 18 107/77 L 95 06/07/22 08:00 06/07/22 08:00 06/07/22 08:00 06/07/22 08:00 06/07/22 08:00 Laboratory Results - last 24 hr 06/07/22 07:14: WBC 6.7 D, RBC 4.47, Hgb 14.2, Hct 42.6, MCV 95.1, MCH 31.8 H, MCHC 33.4, RDW 13.2, Plt Count 304, MPV 8.2, Neut % (Auto) 60.7, Lymph % (Auto) 28.5, [place] % (Auto) 7.7, Eos % (Auto) 2.0, Baso % (Auto) 1.1, Neut # (Auto) 4.1, Lymph # (Auto) 1.9, [place] # (Auto) 0.5, Eos # (Auto) 0.1, Baso # (Auto) 0.1 06/07/22 07:14: Sodium 139, Potassium 3.7, Chloride 106, Carbon Dioxide 27, Anion Gap 9.7, BUN 16, Creatinine 0.80, Estimated Creat Clear 54, Estimated GFR 72, Est GFR ( Amer) 87, Glucose 93, Calcium 8.7, Magnesium 2.0, Total Bilirubin 0.5, AST 32, ALT 19, Alkaline Phosphatase 59, Total Protein 6.8, Albumin 4.0, Globulin 2.8, Albumin/Globulin Ratio 1.4 I & O for Last 24 hours: Intake & Output 06/04/22 06/05/22 06/06/22 06/07/22 23:59 23:59 23:59 23:59 Intake Total 360 / 360 360 / 360 Output Total 552 / 552 Balance -192 / -192 360 / 360 Weight 58.967 kg 60.073 kg 61.326 kg Constitutional Constitutional: no acute distress *Routine Respiratory Exam Respiratory: Present CTA bilaterally; Absent rhonchi, stridor or wheezes *Routine Cardiovascular Exam Cardiovascular: Present RRR; Absent murmur, gallop or rubs *Routine Extremities Exam Extremities: Absent cyanosis, clubbing or edema *Routine Neurological Exam Neurological: Present alert, oriented X3 and CN II-XII intact Results Data Completed and Pending Labs on day of discharge: Labs from last 24 hours 06/07/22 06/07/22 07:14 07:14 WBC 6.7 D RBC 4.47 Hgb 14.2 Hct 42.6 MCV 95.1 MCH 31.8 H MCHC 33.4 RDW 13.2 Plt Count 304 MPV 8.2 Neut % (Auto) 60.7 Lymph % (Auto) 28.5 [place] % (Auto) 7.7 Eos % (Auto) 2.0 Baso % (Auto) 1.1 Neut # (Auto) 4.1 Lymph # (Auto) 1.9 [place] # (
--- NOTE | 2022-06-07 11:17 | [facility].PHAINT1 ---
Pharmacy Intervention Comments: Discharge medication counseling completed with patient and family. Overviewed new and continued medications, including indications, possible adverse effects, and mitigation strategies. Patient mentioned muscle cramps, which could be related to atorvastatin use. This student advised patient to consult PCP. Patient's family asked whether aspirin is available OTC; this student answered in the affirmative. Patient and family verbalized understanding of the information provided and had no further questions or concerns at this time. -Rosey Barnes, PharmD Candidate 2022
--- NOTE | 2022-06-08 12:53 | CARE MANAGER ---
Contacted patient related to hospital discharge. She states she picked up medication and is aware of follow up appointments. Denies any questions or concerns. RIA Mota
== END 2022-06-07 11:21 | disposition home or self-care (01) | DRG 281 ==
LOC: ER 06-06 00:01 → 2ND 06-06 00:17
PROVIDERS: Internal Medicine; Nurse Practitioner Family; Physician Assistant; Admitting Provider Internal Medicine Adolescent Medicine; Emergency Provider Emergency Medicine; PCP Family Medicine; Visit Provider Family Medicine
PROC: B2111ZZ Fluoroscopy of Multiple Coronary Arteries using Low Osmolar Contrast (ICD-10-PCS; principal; 2022-06-06 12:00)
DX: I21.4 Non-ST elevation (NSTEMI) myocardial infarction (principal); I16.1 Hypertensive emergency; I51.81 Takotsubo syndrome; I10 Essential (primary) hypertension; E78.5 Hyperlipidemia, unspecified; I25.10 Atherosclerotic heart disease of native coronary artery without angina pectoris
CPT/HCPCS: 36415; 70450; 71045; 80053; 80061; 83735; 84484; 85025; 93005; 93306; 93458; 99152; 99291; C1725; C1769; C9803; J1644; J2405; Q9967; U0003; U0005

== ENCOUNTER → 2022-06-15 14:29 | Outpatient (CLI) | payer MEDICARE, BC, SELFPAY ==
[2022-06-15 16:15] LABS: Anion Gap 10.3 mEq/L (5-15); Blood Urea Nitrogen 18 mg/dl (7-17); Calcium 8.9 mg/dl (8.4-10.2); Carbon Dioxide 29 mmol/L (22.0-30.0); Chloride 106 mmol/L (98-107); Estimated Glomerular Filt Rate 72 ml/min (>60); GFR (African American) 87 ML/MIN (>60); Glucose 91 mg/dl (74-100); Potassium 4.3 mmoL/L (3.5-5.1); Sodium 141 mmol/L (136-145)
== END ==
PROVIDERS: PCP Family Medicine; Visit Provider Physician Assistant
DX: E78.5 Hyperlipidemia, unspecified (principal); I10 Essential (primary) hypertension; I51.81 Takotsubo syndrome
CPT/HCPCS: 36415; 80048

== ENCOUNTER → 2022-07-26 09:59 | Outpatient (CLI) | payer MEDICARE, BC, SELFPAY | PROVIDERS: PCP Family Medicine; Visit Provider Physician Assistant | DX: I51.81 Takotsubo syndrome (principal) | CPT/HCPCS: 93308 ==

== ENCOUNTER 2023-02-05 10:52 | Emergency (ER) | payer MEDICARE, BC, SELFPAY ==
[2023-02-05 11:00] VITALS: BP 131/78; PULSE 70; RESP 17; TEMP 36.9; O2SAT 99; BMI 21.7
--- NOTE | 2023-02-05 11:13 | EXP.UTC ---
Discharge Plan Disposition Patient Disposition: Home, Self-Care Condition: Good Prescriptions Prescriptions: New azithromycin [Zithromax Z-Karel] 250 mg tablet See Rx Instructions .ROUTE .COMPLEX 5 Days Qty: 6 0RF Rx Instructions: For 250 mg dose pack: take 500 mg today (day 1), then 250 mg for 4 days (days 2-5) methylprednisolone [Medrol (Karel)] 4 mg tablets,dose pack See Rx Instructions .Route .COMPLEX 6 Days Qty: 21 0RF Rx Instructions: taper pack; No Action aspirin 81 mg tablet 81 mg PO DAILY atorvastatin 10 mg tablet 10 mg PO DAILY Qty: 90 3RF estradiol [Yuvafem] 10 mcg tablet 10 mcg vaginal .2qweekly alendronate 70 mg tablet 70 mg PO WEEKLY Patient Comments: TAKE 1 TABLET BY MOUTH ONCE A WEEK cetirizine [Zyrtec] 10 mg Tablet 10 mg PO DAILY calcium carbonate-vitamin D3 [Calcium + D] 600 mg-5 mcg (200 unit) Tablet 1 tab PO TID fluticasone propionate [Flonase] 50 mcg/actuation [place],Suspension 50 mcg INTRANASAL NEEDED PRN (Reason: allergies) lisinopril 20 mg tablet 20 mg PO DAILY metoprolol succinate 25 mg tablet extended release 24 hr 25 mg PO DAILY Referrals Follow up/Referrals: Daniela Jones MD [Primary Care Provider] - See instructions Activity Restrictions/Add. Instructions Additional Instructions/Restrictions: *Monitor Temp, Over the counter Motrin or Tylenol as directed/as needed Tylenol every 4 hours and Motrin every 6 hours (as long as your family doctor has told you that you can take it) for fever or pain. and straight to ER if unable to lower temp less than 101.0 after medication given Warm fluids like tea with honey may help to soothe the throat and help with nasal congestion? *Sleep elevated *Humidifier/Vaporizer Follow up IMMEDIATELY for new or worsening symptoms or no Noticeable improvement over the next 48-72 hours. 911 for difficulty breathing or swallowing Clinical Impressions Clinical Impression: Sinusitis Qualifiers: Sinusitis location: unspecified location Chronicity: unspecified Qualified Code(s): J32.9 - Chronic sinusitis, unspecified Instructions Patient Instructions: DI for Sinusitis, Sinusitis Discharge ED Provider: Monserrat Sarkar [facility] HPI General Stated complaint: congestion, runny nose, cough Mode of Arrival: Ambulatory Source of Information: Patient Limitations: No Limitations Time Seen by Provider: 02/05/23 11:13 Description of Symptoms (Recalled from Triage Doc. by RN): Sinus infection HEENT Symptoms (Recalled from RN notes): Yes Resp Symptoms (Recalled from RN notes): No Skin Symptoms (Recalled from RN notes): No MS Symptoms (Recalled from RN notes): No Functional Status (Recalled from RN notes): n/a History of Present Illness Provider Complaint: Patient states that she has been having sinus pain and pressure for about 2 weeks but drainage was clear and now has changed to yellowish green and getting worse so she came in to get checked Related Data Home Medications Medication Instructions Recorded Confirmed alendronate 70 mg tablet 70 mg PO WEEKLY Osteoporosis 06/05/22 02/05/23 aspirin 81 mg tablet 81 mg PO DAILY heart health 06/15/22 02/05/23 estradiol 10 mcg vaginal tablet 10 mcg vaginal .2qweekly . 11/02/22 02/05/23 (Yuvafem) calcium carbonate 600 mg-vitamin 1 tab PO TID Supplement 02/05/23 02/05/23 D3 5 mcg (200 unit) tablet cetirizine 10 mg tablet (Zyrtec) 10 mg PO DAILY allergies 02/05/23 02/05/23 fluticasone propionate 50 50 mcg intranasal NEEDED PRN 02/05/23 02/05/23 mcg/actuation nasal allergies spray,suspension lisinopril 20 mg tablet 20 mg PO DAILY , 02/05/23 02/05/23 metoprolol succinate 25 mg 25 mg PO DAILY . 02/05/23 02/05/23 tablet,extended release 24 hr Previous Rx's Medication Instructions Recorded atorvastatin 10 mg tablet 10 mg PO DAILY Cholesterol #90 tabs 06/15/22 azithromycin 250 mg tablet See Rx Instructions
[2023-02-05 11:26] VITALS: BP 131/78; PULSE 70; RESP 17; TEMP 36.9; O2SAT 99
== END 2023-02-05 11:25 | disposition home or self-care (01) ==
PROVIDERS: Emergency Provider Nurse Practitioner; PCP Family Medicine
DX: J01.90 Acute sinusitis, unspecified (principal); I10 Essential (primary) hypertension; E78.5 Hyperlipidemia, unspecified; I51.81 Takotsubo syndrome; K58.9 Irritable bowel syndrome, unspecified
CPT/HCPCS: 99204; 99212; G0463

== ENCOUNTER 2024-09-26 07:42 | Outpatient (CLI) | payer MEDICARE, BC, SELFPAY ==
[2024-09-26 08:22] LABS: Basophils % 0.2 % (0.1-2.0); Eosinophils # 0.2 Kmm3 (0.0-0.4); Eosinophils % 1.6 % (0.1-12.0); Hematocrit 39.3 % (37.0-47.0); Hemoglobin 12.9 g/dL (12.2-16.2); Immature Granulocytes % 0.9 %; Lymphocytes # 3.1 K/mm3 (0.7-4.5); Lymphocytes % 27.6 % (10-50); Mean Corpuscular HGB Conc 32.8 g/dL (31.8-35.4); Mean Corpuscular Hemoglobin 31.7 pg (27.0-31.2); Mean Corpuscular Volume 96.6 fl (81-99); Mean Platelet Volume 9.7 fl (7.4-10.4); Monocytes % 8.7 % (1.7-9.3); Nucleated Red Blood Cells # 0 10^3/uL; Nucleated Red Blood Cells % 0 %; Platelet Count 251 K/mm3 (142-424); Red Blood Count 4.07 M/mm3 (4.20-5.40); Red Cell Distribution Width 13.6 % (11.5-17.5); Red Cell Distribution Width-SD 48.6 fL; White Blood Count 11.4 K/mm3 (4.8-10.8)
[2024-09-26 08:45] LABS: Alanine Aminotransferase 35 U/L (12-78); Albumin Level 3.8 g/dl (3.5-5.0); Alkaline Phosphatase 52 U/L (38-126); Aspartate Amino Transferase 24 U/L (14-36); Bilirubin,Direct 0.1 mg/dl (0.0-0.4); Bilirubin,Indirect 0.4 mg/dL (0.0-0.9); Bilirubin,Total 0.5 mg/dl (0.2-1.3); Bilirubin,Unconjugated 0.4 mg/dL (0.0-1.1); Blood Urea Nitrogen 32 mg/dl (7-17); Calcium 9.2 mg/dl (8.4-10.2); Carbon Dioxide 29 mmol/L (22.0-30.0); Chloride 111 mmol/L (98-107); Cholesterol 201 mg/dl (140-200); Estimated Glomerular Filt Rate 49 ml/min (>60); GFR (African American) 60 ML/MIN (>60); Glucose 82 mg/dl (74-100); Sodium 140 mmol/L (136-145); Triglycerides 64 mg/dl (30-150); VLDL Cholesterol 13 mg/dL (0-40)
[2024-09-26 08:56] LABS: Direct LDL Cholesterol 57.22 mg/dL (100-129)
[2024-09-26 09:02] LABS: Chol/HDL Ratio 1.7 (1-3.5); HDL Cholesterol 116 mg/dl (40-60)
[2024-09-26 09:16] LABS: Thyroid Stimulating Hormone 5.44 uIU/mL (0.465-4.68)
== END 2024-09-26 23:59 | disposition home or self-care (01) ==
LOC: LAB 07:44
PROVIDERS: PCP Family Medicine; Visit Provider Internal Medicine
DX: E78.5 Hyperlipidemia, unspecified (principal); I10 Essential (primary) hypertension
CPT/HCPCS: 36415; 80048; 80061; 80076; 84439; 84443; 85025

== ENCOUNTER 2024-09-27 22:44 | Emergency (ER) | payer MEDICARE, BC, SELFPAY ==
[2024-09-27 22:52] VITALS: BP 149/87; PULSE 84; RESP 16; TEMP 36.8; O2SAT 98; BMI 23.1
--- NOTE | 2024-09-27 22:59 | HMH.EDGENADL ---
Discharge Plan Disposition Patient Disposition: Home, Self-Care Prescriptions Prescriptions: No Action prednisone 20 mg tablet 20 mg PO DAILY aspirin 81 mg tablet 81 mg PO DAILY estradiol [Yuvafem] 10 mcg tablet 10 mcg vaginal .2qweekly amlodipine 5 mg tablet 5 mg PO DAILY Qty: 90 3RF atorvastatin 10 mg tablet 10 mg PO DAILY Qty: 90 1RF lisinopril 40 mg tablet 40 mg PO DAILY Qty: 90 3RF carvedilol [Coreg] 12.5 mg tablet 12.5 mg PO BID Qty: 60 3RF Rx Instructions: must administer with a meal/food alendronate 70 mg tablet 70 mg PO WEEKLY Patient Comments: TAKE 1 TABLET BY MOUTH ONCE A WEEK cetirizine [Zyrtec] 10 mg Tablet 10 mg PO DAILY calcium carbonate-vitamin D3 [Calcium + D] 600 mg-5 mcg (200 unit) Tablet 1 tab PO TID fluticasone propionate [Flonase] 50 mcg/actuation Jean,Suspension 50 mcg INTRANASAL NEEDED PRN (Reason: allergies) Referrals Follow up/Referrals: Daniela Jones MD [Primary Care Provider] - See instructions Activity Restrictions/Add. Instructions Additional Instructions/Restrictions: Please follow-up with your primary care provider. Please return to the emergency department if you develop any new or worsening symptoms or become concerned for your health. Clinical Impressions Clinical Impression: Encounter for medical assessment Print Language Print Language: Cambodian Discharge ED Provider: Perez Toledo General Adult HPI General Chief complaint: Weakness Stated complaint: LBP,RAMÍREZ,lightheaded,vision blurred Time Seen by Provider: 09/27/24 22:59 Mode of Arrival: Ambulatory Source of Information: Patient Description of Symptoms (Recalled from ER Triage Doc. by RN): PAtient presents with hypotension from earlier in the day. Patient at 149/87 upon initial assessment. History of Present Illness HPI narrative: 68-year-old female with history of hypertension presents for evaluation of hypotension. Reports that she took her daytime blood pressure medications as per usual. She takes carvedilol, amlodipine and lisinopril. She has not had any recent changes, but was put on 2 of them within the last few months. She reports that she felt a little lightheaded earlier today and checked her blood pressure and she had multiple readings that were very low with systolics in the 70s and 80s. She denies any other symptoms of any kind. Specifically denies any chest pain abdominal pain shortness of breath cough fever chills urinary symptoms or other infectious symptoms. Related Data Home Medications ?Medication ?Instructions ?Recorded ?Confirmed alendronate 70 mg tablet 70 mg PO WEEKLY Osteoporosis 06/05/22 09/17/24 aspirin 81 mg tablet 81 mg PO DAILY heart health 06/15/22 09/17/24 estradiol 10 mcg vaginal tablet 10 mcg vaginal .2qweekly . 11/02/22 09/17/24 (Yuvafem) calcium 600 mg (as 1 tab PO TID Supplement 02/05/23 09/17/24 carbonate)-vitamin D3 5 mcg (200 unit) tablet cetirizine 10 mg tablet (Zyrtec) 10 mg PO DAILY allergies 02/05/23 09/17/24 fluticasone propionate 50 50 mcg intranasal NEEDED PRN 02/05/23 09/17/24 mcg/actuation nasal allergies spray,suspension prednisone 20 mg tablet 20 mg PO DAILY 09/17/24 09/17/24 Previous Rx's ?Medication ?Instructions ?Recorded atorvastatin 10 mg tablet 10 mg PO DAILY Cholesterol #90 tabs 06/17/24 amlodipine 5 mg tablet 5 mg PO DAILY #90 tabs 06/19/24 lisinopril 40 mg tablet 40 mg PO DAILY #90 tabs 08/19/24 carvedilol 12.5 mg tablet (Coreg) 12.5 mg PO BID #60 tabs 08/30/24 Allergies Allergy/AdvReac Type Severity Reaction Status Date / Time latex Allergy Unknown Verified 09/17/24 13:42 [facility] Disclaimer: The information contained in this section may have been updated after the patient was seen, as this information can be updated by other users. Medical History Takotsubo syndrome Urinary tract infection Migraine Irritable bowel syndrome (IBS) Hyperlipidemia Hypertension Surgical History History of placement of ear tubes History of colonoscopy History of mandibular surgery Family History Other Breast cancer Family history of acute congestive heart failure Family history of cancer Family history of diabetes mellitus type II Family history of hyperlipidemia Family history of hypertension Family history of hypothyroidism Family history of multiple sclerosis Family history of myocardial infarction Social History Smoking Status: Never smoker alcohol intake: never substance use type: denies use current occupational status: retired Travel in the last 8 weeks?: None Have you lived/traveled outside US in past 30 days?: No Contact w/someone who lives/traveled outside US past 30 days?: No Exposure to someone with infectious disease in past 14 days?: No Do you have a fever (greater than 100.4 F or 38 C)?: No Have you tested positive for COVID-19?: No Exposed to someone with COVID-19 in past 14 days?: No Do you have a sore throat?: No Do you have a cough?: No Do you have any weakness?: No Do you have any diarrhea?: No Are you experiencing any unusual bleeding?: No Do you have any muscle aches/pain?: No Do you have any abdominal pain?: No Are you experiencing loss of taste or smell?: No Other Medical History Have you received the Flu Vaccine for this season: No Have you received the Pneumonia Vaccine: No ROS Obtained: Yes All systems reviewed & no additional complaints except as documented Physical Exam General General appearance: alert and in no apparent distress Head Head exam: atraumatic and normocephalic Eye Eye exam: Present normal appearance, PERRL and EOMI ENT ENT exam: Present normal oropharynx and normal external ear exam Neck Neck exam: Present normal inspection and full ROM Chest Chest inspection: Present normal inspection and symmetric chest wall rise; Absent tenderness Respiratory Respiratory exam: Present normal lung sounds bilaterally; Absent respiratory distress Cardiovascular Cardiovascular exam: Present regular rate and normal rhythm Abdominal Exam Abdominal exam: Present soft; Absent distention, tenderness or guarding Extremities Exam Extremities exam: Present normal inspection; Absent edema or joint swelling Back Exam Back exam: Present normal inspection; Absent tenderness Neurological Exam Neurological exam: Present alert and oriented X3; Absent motor sensory deficit Psychiatric Psychiatric exam: Present normal affect and normal mood Skin Skin exam: Present warm, dry and normal color Lymphatic Lymphatic Findings: no adenopathy Medical Decision Making Medical Records Medical records reviewed: Yes I reviewed the patient's medical records. Screening: Per USPSTF and CDC recommendations, given the prevalence of disease in our region, it is our hospital?s policy to screen for HIV and viral Hepatitis for all patients aged 18 and over and those with ongoing risk factors. Cameron Inquiry Pt receiving controlled substance: No Cameron was queried for this patient: No Vital Signs: 09/27/24 22:52 09/27/24 23:00 09/27/24 23:24 Temperature 98.2 F Temperature Source Oral Pulse Rate 80 75 Pulse Rate [Right] 84 Respiratory Rate 16 Blood Pressure 118/76 109/70 L Blood Pressure [Right Arm] 149/87 H Blood Pressure Mean [Right Arm] 107 02 Sat by Pulse Oximetry 98 94 L 98 Oxygen Delivery Method Room Air 09/27/24 23:57 Temperature 98.0 F Temperature Source Pulse Rate 70 Pulse Rate [Right] Respiratory Rate 18 Blood Pressure 119/81 Blood Pressure [Right Arm] Blood Pressure Mean [Right Arm] 02 Sat by Pulse Oximetry Oxygen Delivery Method Room Air Lab Data Lab results reviewed: Yes I reviewed the patient's lab results. ECG Data Tracing #1: I reviewed this ECG and interpreted as documented below: ECG initial impression date: 09/27/24 ECG initial impression time: 23:11 ECG normal with no acute: arrhythmias, ischemia, conduction abnormalities, chamber hypertrophy Normal Sinus Rhythm: Yes Medical Decision Narrative: 68-year-old female with history of hypertension presents with hypotension earlier today without any other significant symptoms besides mild lightheadedness.. History was obtained via interactive discussion with patient. On arrival, patient is afebrile, normotensive with blood pressure 140s systolic, alert and oriented x 4 GCS 15, moving all extremities spontaneously. Full physical exam performed and significant for no significant physical exam abnormalities. Differential includes but is not limited to medication error, error in obtaining blood pressure at home, infection, cardiac pathology. Patient has no symptoms of any kind at this time and her blood pressure is normal. Blood work was considered but deemed unnecessary given patient is asymptomatic with normal vital signs. A EKG was obtained which shows normal sinus rhythm. Blood sugar was obtained which is 122. Patient was observed for period of an hour and had 4 normal blood pressures during that time. Blood pressure upon discharge was 120 systolic. Patient denny asymptomatic. Patient was given strict return precautions for return of hypotension and instructions to follow-up with PCP. Patient agreeable to plan. Procedures Risk/Benefits of Procedure(s) Were Explained: Yes Critical Care Critical Care Time Critical Care Time: No
[2024-09-27 23:00] VITALS: BP 118/76; PULSE 80; O2SAT 94
--- NOTE | 2024-09-27 23:10 | ECG_ITS ---
APPROVED REPORT Exam: Resting ECG HR:73 bpm ECG Measurements Heart Rate 73 AXES GA 153 P 67 QRSd 91 QRS 31 QT 355 T 51 QTc 382 Conclusion SINUS RHYTHM POSSIBLE RIGHT ATRIAL ENLARGEMENT [0.25mV P-WAVE] BORDERLINE ECG UNCONFIRMED REPORT Electronically signed by : PATEL HERRERA, 09/29/2024 23:42:19
[2024-09-27 23:24] VITALS: BP 109/70; PULSE 75; O2SAT 98
[2024-09-27 23:57] VITALS: BP 119/81; PULSE 70; RESP 18; TEMP 36.7; O2SAT 98
== END 2024-09-28 00:01 | disposition home or self-care (01) ==
PROVIDERS: Emergency Provider Emergency Medicine; PCP Family Medicine
DX: R42 Dizziness and giddiness (principal); I10 Essential (primary) hypertension
CPT/HCPCS: 93005; 99283

== ENCOUNTER 2025-04-08 08:00 | Emergency (ER) | payer MEDICARE, BC, SELFPAY ==
[2025-04-08 08:06] VITALS: BP 161/97; PULSE 88; O2SAT 96
--- NOTE | 2025-04-08 08:06 | ECG_ITS ---
APPROVED REPORT Exam: Resting ECG HR:86 bpm ECG Measurements Heart Rate 86 AXES WY 169 P 74 QRSd 94 QRS 38 QT 343 T 57 QTc 387 Conclusion SINUS RHYTHM LOW QRS VOLTAGE IN PRECORDIAL LEADS [QRS DEFLECTION < 1.0 mV IN CHEST LEADS] MINIMAL ST DEPRESSION [0.025+ mV ST DEPRESSION] BORDERLINE ECG UNCONFIRMED REPORT Electronically signed by : Marcos Ruiz, 04/08/2025 15:00:27
[2025-04-08 08:14] VITALS: BP 161/97; PULSE 91; RESP 22; TEMP 36.6; O2SAT 95; BMI 21.6
--- NOTE | 2025-04-08 08:19 | CT_ITS ---
FINAL REPORT TECHNIQUE: The patient was injected with IV contrast. Axial images were obtained through the chest in a PE protocol. 3-D reconstruction images were also performed. Individualized dose reduction techniques using automated exposure control or adjustment of the MA and/or KV according to patient's size were employed. CLINICAL HISTORY: dyspnea/stridor COMPARISON: None FINDINGS: Mediastinal vasculature is adequately opacified. No pulmonary artery filling defects are identified to suggest PE. There is no aortic dissection. There is no axillary adenopathy. There is no hilar or mediastinal adenopathy. The heart size is normal. There is no pericardial or pleural effusion. Limited images of the upper abdomen are unremarkable. No suspicious infiltrate or nodule is identified. IMPRESSION: No pulmonary embolus or dissection. Reviewed, Interpreted and Dictated by Emanuel Ruffin MD Transcribed by Gudelia Osorio Authenticated and [facility]
--- NOTE | 2025-04-08 08:19 | CT_ITS ---
FINAL REPORT TECHNIQUE: Thin section axial CT images were obtained through the neck after intravenous contrast administration. Coronal and sagittal reformats were also obtained. This study was performed with techniques to keep radiation doses as low as reasonably achievable (ALARA). Individualized dose reduction techniques using automated exposure control or adjustment of mA and/or kV according to the patient's size were employed. CLINICAL HISTORY: dyspnea/stridor COMPARISON: None FINDINGS: CT SOFT TISSUES NECK: The nasopharynx, oropharynx, hypopharynx and larynx are unremarkable. There is no mass or adenopathy. There is a heterogeneous thyroid gland. There is mild ethmoid mucoperiosteal thickening as well as mucoperiosteal thickening in the maxillary sinuses. There is no acute osseous abnormality. IMPRESSION: Mild soft tissue thickening in the ethmoid and maxillary sinuses. Mildly heterogeneous thyroid gland. Reviewed, Interpreted and Dictated by Emanuel Ruffin MD Transcribed by Gudelia Osorio Authenticated and [facility]
[2025-04-08 08:25] LABS: Coronavirus 19, PCR Not Detected (NotDetected); Influenza A, PCR Not Detected (NotDetected); Influenza B, PCR Not Detected (NotDetected)
[2025-04-08 08:29] LABS: Hematocrit 43.7 % (37.0-47.0); Hemoglobin 14.2 g/dL (12.2-16.2); Immature Granulocytes % 0.3 %; Mean Corpuscular HGB Conc 32.5 g/dL (31.8-35.4); Mean Corpuscular Hemoglobin 31.3 pg (27.0-31.2); Mean Corpuscular Volume 96.3 fl (81-99); Nucleated Red Blood Cells % 0 %; Platelet Count 233 K/mm3 (142-424); Red Blood Count 4.54 M/mm3 (4.20-5.40); Red Cell Distribution Width-SD 47.8 fL; White Blood Count 7.0 K/mm3 (4.8-10.8)
[2025-04-08] MEDS: DEXAMETHASONE 4MG/ML 1ML VIAL 10 MG IV (08:29)
[2025-04-08] MEDS: IPRATROPIUM/ALBUTEROL 3 ML NEB IH (08:29)
[2025-04-08 08:30] VITALS: BP 152/100; PULSE 89; RESP 16; O2SAT 96
[2025-04-08] MEDS: LACTATED RINGERS 1000ML 1,000 ML 999 ML IV (08:30)
[2025-04-08 08:36] LABS: Alanine Aminotransferase 35 U/L (12-78); Albumin Level 4.9 g/dl (3.5-5.0); Albumin/Globulin Ratio 1.6 (1.1-1.8); Alkaline Phosphatase 69 U/L (38-126); Anion Gap 10.9 mEq/L (5-15); Aspartate Amino Transferase 31 U/L (14-36); Bilirubin,Total 0.7 mg/dl (0.2-1.3); Blood Urea Nitrogen 12 mg/dl (7-17); Calcium 9.7 mg/dl (8.4-10.2); Carbon Dioxide 28 mmol/L (22.0-30.0); Chloride 104 mmol/L (98-107); Creatinine Clearance Estimated 48 mL/min (50-200); Creatinine,Serum 0.90 mg/dl (0.52-1.04); Estimated Glomerular Filt Rate 62 ml/min (>60); GFR (African American) 75 ML/MIN (>60); Globulin 3.0 g/dL (1.3-3.2); Glucose 115 mg/dl (74-100); Potassium 3.9 mmoL/L (3.5-5.1); Sodium 139 mmol/L (136-145); Total Protein,Serum 7.9 g/dl (6.3-8.2)
[2025-04-08 08:40] LABS: D-Dimer 1.31 ug/mL (0.0-0.5)
--- NOTE | 2025-04-08 08:44 | ED_ITS ---
Discharge Plan Disposition Patient Disposition: Home, Self-Care Prescriptions Prescriptions: No Action aspirin 81 mg tablet 81 mg PO DAILY estradiol [Yuvafem] 10 mcg tablet 10 mcg vaginal .2qweekly amlodipine 5 mg tablet 5 mg PO DAILY Qty: 90 3RF lisinopril 40 mg tablet 40 mg PO DAILY Qty: 90 3RF atorvastatin 10 mg tablet 10 mg PO DAILY Qty: 90 1RF carvedilol [Coreg] 12.5 mg tablet 12.5 mg PO BID Qty: 90 3RF Rx Instructions: must administer with a meal/food alendronate 70 mg tablet 70 mg PO WEEKLY Patient Comments: TAKE 1 TABLET BY MOUTH ONCE A WEEK cetirizine [Zyrtec] 10 mg Tablet 10 mg PO DAILY calcium carbonate-vitamin D3 [Calcium + D] 600 mg-5 mcg (200 unit) Tablet 1 tab PO TID fluticasone propionate [Flonase] 50 mcg/actuation [place],Suspension 50 mcg INTRANASAL NEEDED PRN (Reason: allergies) Referrals Follow up/Referrals: Daniela Jones MD [Primary Care Provider, Medical] - See instructions Bill Alvarado MD [Physician, Ear, Nose, Throat] - See instructions Activity Restrictions/Add. Instructions Additional Instructions/Restrictions: Your symptoms today were consistent with a severe case of laryngitis that presented today with a hoarse voice and stridor which have improved after steroids. No evidence of any lower airway disease such as pneumonia or any significant soft tissue swelling or mass contributing to your symptoms today. If your symptoms or not improving in 1 to 2 weeks I recommend you follow-up with our ENT group here a referral has been made to Dr. Alvarado. The steroids you have been given a long-acting no further steroids are needed. A viral panel has been sent which you can follow-up on most likely the cause of this is viral. No indication for antibiotics at the moment. Clinical Impressions Clinical Impression: Laryngitis Print Language Print Language: Martiniquais Discharge ED Provider: Cesar Ruiz General Adult HPI General Chief complaint: Shortness of Breath/Dyspnea Stated complaint: diff breathing, throat swollen Time Seen by Provider: 04/08/25 08:12 Mode of Arrival: Ambulatory Source of Information: Patient Description of Symptoms (Recalled from ER Triage Doc. by RN): Patient reports shortness of breath, cough, weakness, headache, sore throat and coughing up green mucus for three days. History of Present Illness HPI narrative: The patient is a 69-year-old female presenting today with difficulty breathing particular taking a breath in. Over the last 3 days she has had some cough and runny nose and just an upper respiratory infection but woke up this morning with difficulty breathing hoarse voice and specifically with difficulty taking a breath in. No fevers or chills. No history of smoking but has been around secondhand smoke for an extended period time her whole life. No diagnosis of COPD or any heart or lung problems. Related Data Home Medications ?Medication ?Instructions ?Recorded ?Confirmed alendronate 70 mg tablet 70 mg PO WEEKLY Osteoporosis 06/05/22 03/19/25 aspirin 81 mg tablet 81 mg PO DAILY heart health 06/15/22 03/19/25 estradiol 10 mcg vaginal tablet 10 mcg vaginal .2qweek ly . 11/02/22 03/19/25 (Yuvafem) calcium 600 mg (as 1 tab PO TID Supplement 01/2003/19/25 carbonate)-vitamin D3 5 mcg (200 unit) tablet cetirizine 10 mg tablet (Zyrtec) 10 mg PO DAILY allerg ies 02/05/23 03/19/25 fluticasone propionate 50 50 mcg intranasal NEEDED PRN 02/05/23 03/19/25 mcg/actuation nasal allergies spray,suspension Previous Rx's ?Medication ?Instructions ?Recorded amlodipine 5 mg tablet 5 mg PO DAILY #90 tabs 06/19 lisinopril 40 mg tablet 40 mg PO DAILY #90 tabs 07/22 06/15 atorvastatin 10 mg tablet 10 mg PO DAILY Cholesterol # 90 tabs 12/09/24 carvedilol 12.5 mg tablet (Coreg) 12.5 mg PO BID #90 t abs 01/15/25 Allergies Allergy/AdvReac Type Severity Reaction Status Date / Time latex Allergy Unknown Unknown Verified 03/19/25 13:07 allergy reaction [facility] Disclaimer: The information contained in this section may have been updated after the patient was seen, as this information can be updated by other users. Medical History Takotsubo syndrome Urinary tract infection Migraine Irritable bowel syndrome (IBS) Hyperlipidemia Hypertension Surgical History History of placement of ear tubes History of colonoscopy History of mandibular surgery Family History Other Breast cancer Family history of acute congestive heart failure Family history of cancer Family history of diabetes mellitus type II Family history of hyperlipidemia Family history of hypertension Family history of hypothyroidism Family history of multiple sclerosis Family history of myocardial infarction Social History Smoking Status: Never smoker alcohol intake: never substance use type: denies use current occupational status: retired Travel in the last 8 weeks?: None Have you lived/traveled outside US in past 30 days?: No Contact w/someone who lives/traveled outside US past 30 days?: No Exposure to someone with infectious disease in past 14 days?: No Do you have a fever (greater than 100.4 F or 38 C)?: No Have you tested positive for COVID-19?: No Exposed to someone with COVID-19 in past 14 days?: No Do you have a sore throat?: No Do you have a cough?: No Do you have any weakness?: No Do you have any diarrhea?: No Are you experiencing any unusual bleeding?: No Do you have any muscle aches/pain?: No Do you have any abdominal pain?: No Are you experiencing loss of taste or smell?: No Other Medical History Have you received the Flu Vaccine for this season: No Have you received the Pneumonia Vaccine: No ROS Obtained: Yes All systems reviewed & no additional complaints except as documented Physical Exam General General appearance: alert and in no apparent distress ENT ENT exam: Present other (Stridor and hoarse voice) Respiratory Respiratory exam: Present other (Does have some scant wheezing but when she coughs it seems to clear otherwise the lower respiratory exam is normal) Cardiovascular Cardiovascular exam: Present regular rate Neurological Exam Neurological exam: Present alert and oriented X3 Medical Decision Making Medical Records Screening: Per USPSTF and CDC recommendations, given the prevalence of disease in our region, it is our hospital?s policy to screen for HIV and viral Hepatitis for all patients aged 18 and over and those with ongoing risk factors. Cameron Inquiry Pt receiving controlled substance: No Vital Signs: 04/08/25 08:06 04/08/25 08:14 04/08/25 08:30 Temperature 97.9 F Temperature Source Oral Pulse Rate 88 89 Pulse Rate [Radial] 91 H Respiratory Rate 22 16 Blood Pressure 161/97 H 152/100 H Blood Pressure [Right Arm] 161/97 H Blood Pressure Mean [Right Arm] 118 Blood Pressure Source [Right Arm] Automatic Cuff Blood Pressure Position [Right Arm] Sitting 02 Sat by Pulse Oximetry 96 95 96 Oxygen Delivery Method Room Air 04/08/25 09:10 04/08/25 09:38 Temperature Temperature Source Pulse Rate 79 Pulse Rate [Radial] Respiratory Rate 15 Blood Pressure 146/92 H 123/85 Blood Pressure [Right Arm] Blood Pressure Mean [Right Arm] Blood Pressure Source [Right Arm] Blood Pressure Position [Right Arm] 02 Sat by Pulse Oximetry 97 Oxygen Delivery Method Lab Data Lab results reviewed: Yes I reviewed the patient's lab results. Lab Results 04/08/25 08:07: WBC 7.0, RBC 4.54, Hgb 14.2, Hct 43.7, MCV 96.3, MCH 31.3 H, MCHC 32.5, RDW 13.4, Plt Count 233, MPV 9.3, Neut % (Auto) 74.5, Lymph % (Auto) 13.6, [place] % (Auto) 10.6 H, Eos % (Auto) 0.7, Baso % (Auto) 0.3, Neut # (Auto) 5.2, Lymph # (Auto) 1.0, [place] # (Auto) 0.7, Eos # (Auto) 0.1, Baso # (Auto) 0.0, D-Dimer 1.31 H, Sodium 139, Potassium 3.9, Chloride 104, Carbon Dioxide 28, Anion Gap 10.9, BUN 12, Creatinine 0.90, Estimated Creat Clear 48, Estimated GFR 62, Est GFR ( Amer) 75, Glucose 115 H, Calcium 9.7, Total Bilirubin 0.7, AST 31, ALT 35, Alkaline Phosphatase 69, Troponin I < 0.01, Total Protein 7.9 D , Albumin 4.9, Globulin 3.0, Albumin/Globulin Ratio 1.6, HCV Ab JANAE w/Rflx PCR Qn Negative, HIV Ag/Ab Combo Qual Negative 04/08/25 08:08: SARS-CoV-2 (PCR) Not detected, Influenza A Untype (PCR) Not detected, Influenza Type B (PCR) Not detected 04/08/25 08:07 04/08/25 08:07 Orders (Tests/Meds): ED MEDICATIONS Discontinued Medications Generic Name Dose Route Start Last Admin Trade Name Berhane PRN Reason Stop Dose Admin Albuterol/Ipratropium 3 ml 04/08/25 08:19 04/08/25 08:29 Ipratropium/Albuterol 3 Ml Neb IH 04/08/25 08:20 3 ml ONCE ONE Administration Dexamethasone Sodium Phosphate 10 mg 04/08/25 08:19 04/08/25 08:29 Dexamethasone 4mg/Ml 1ml Vial IV 04/08/25 08:20 10 mg ONCE ONE Administration Lactated Ringer's 1,000 mls @ 999 mls/hr 04/08/25 08:30 04/08/25 10:14 Lactated Ringer's 1000 Ml Bag IV 04/08/25 09:30 Infused .Q1H1M YU Infusion Iopamidol 80 ml 04/08/25 09:02 04/08/25 09:03 Iopamidol-370 (76%);100ml Bottle IV 04/08/25 09:03 80 ml ONCE ONE Administration Sodium Chloride 50 ml 04/08/25 09:02 04/08/25 09:03 0.9 % Sodium Chloride 50 Ml Vial IV 04/08/25 09:03 50 ml ONCE ONE Administration Sodium Chloride 10 ml 04/08/25 09:02 04/08/25 09:03 Sodium Chloride 0.9% 10ml Syr (Rad Only) IV 04/08/25 09:03 10 ml ONCE ONE Administration ORDERS Category Date Time Status CT angio chest PE protocol Stat Cat Scan 04/08/25 08:[address] soft tissue neck w con Stat Cat Scan 04/08/25 08:19 Completed CBC w/Auto Diff [Complete Blood Count Auto Diff] Stat Lab 04/08/25 08:07 Completed CMP [Comprehensive Metabolic Panel] Stat Lab 04/08/25 08:07 Completed D-Dimer Stat Lab 04/08/25 08:07 Completed HIV Combo Stat Lab 04/08/25 08:07 Completed Hepatitis C Ab Qual. W/ RFX Stat Lab 04/08/25 08:07 Completed Rapid PCR Covid and Flu A/B Stat Lab 04/08/25 08:08 Completed Trop I [Troponin I] Stat Lab 04/08/25 08:07 Completed Troponin I Q3H Lab 04/08/25 11:30 Ordered Troponin I Q3H Lab 04/08/25 14:30 Ordered ECG Data Tracing #1: I reviewed this ECG and interpreted as documented below: Ventricular rate of 86 normal sinus rhythm no acute ischemic changes noted no significant conduction abnormality Medical Decision Narrative: 69-year-old with above history and physical she appears to have stridor and hoarse voice consistent with an upper airway inflammatory process such as laryngitis. However given her stridor will get a contrasted CT scan to make sure is not any anatomic pathology such as a mass or significant soft tissue obstruction. Otherwise this is likely just a localized inflammatory reaction that will respond with steroids. I will give her ENT follow-up regardless. This does not appear to be primarily lower in the airways but she did have a little bit of wheezing initially breathing treatment has been administered to see if she has any type of reactivity that would improve. CT scan of her chest and soft tissue neck are pending and will reassess. Reassessment 1021 CT scans performed which I personally interpreted which show no evidence of any significant soft tissue abnormalities in the neck no lung parenchymal abnormality such as a pulmonary embolism or pneumonia etc. Scans read by radiologist as normal as well. Patient showed significant improvement on serial reassessments no more stridor breathing comfortably at this point a working diagnosis this is a very case of laryngitis. I have given her referral to ENT if she is not improving. Steroids were given in the emergency department viral panel was sent that she can follow-up on. Patient discharged in improved and stable condition Critical Care Critical Care Time Critical Care Time: No
[2025-04-08 08:53] LABS: Troponin I < 0.01 ng/ml (0.00-0.034)
[2025-04-08] MEDS: SODIUM CHLORIDE 0.9% 10ML SYR (RAD ONLY) 10 ML IV (09:03)
[2025-04-08] MEDS: IOPAMIDOL-370 (76%);100ML BOTTLE 80 ML IV (09:03)
[2025-04-08] MEDS: 0.9 % SODIUM CHLORIDE 50 ML VIAL IV (09:03)
[2025-04-08 09:10] VITALS: BP 146/92; PULSE 79; RESP 15; O2SAT 97
[2025-04-08 09:38] VITALS: BP 123/85
[2025-04-08 09:45] LABS: Hepatitis C Ab Qual. W/ RFX NEGATIVE (Negative)
[2025-04-08 10:23] VITALS: BP 148/88; PULSE 76; RESP 16; TEMP 36.6
== END 2025-04-08 10:30 | disposition home or self-care (01) ==
PROVIDERS: Emergency Provider Student in an Organized Health Care Education/Training Program; PCP Family Medicine
DX: J04.0 Acute laryngitis (principal)
CPT/HCPCS: 70491; 71275; 80053; 84484; 85025; 85378; 86803; 87389; 87636; 93005; 96361; 96374; 99285; J1100; J7120; Q9967

== ENCOUNTER 2025-04-28 08:14 | Outpatient (CLI) | payer MEDICARE, BC, SELFPAY ==
--- NOTE | 2025-04-28 08:18 | MM_ITS ---
PROCEDURE INFORMATION: Exam: MG Bilateral Screening 3D Mammography Exam date and time: 04/28/2025 8:32 AM Age: 69 years old Clinical indication: Screening examination. Two sisters had breast cancer. TECHNIQUE: Imaging protocol: Bilateral Screening tomosynthesis and 2D mammography including computer-aided detection (CAD) when performed. COMPARISON: 1. MG MM DIG MAMM DX UNILAT RT CAD 12/24/2021 1:39 PM 2. MG MM DIG SCREENING MAMM BI W/CAD 05/26/2021 10:06 AM 3. MG DIAGNOSTIC BILATERAL MAMMOGRAPHY W/ TOMOSYNTHESIS 06/21/2019 11:56 AM 4. MG MAMMO SCREENING 10/26/2017 3:20 PM FINDINGS: MAMMOGRAPHY: Breast composition: There are scattered areas of fibroglandular density. Mass: None. Architectural distortion: None. Calcifications: Question groupings opacification left upper quadrant posterior 3rd over 2-3 cm. Stable appearance of one or two calcifications in the right upper outer quadrant biopsy site with related clip. Asymmetric density: None. Skin thickening: None. Axillary adenopathy: None. IMPRESSION: Patient will be recalled for left diagnostic mammography with magnification views in CC and true lateral for further evaluation of calcifications. Given the reported risk factors, a breast cancer risk assessment may prove useful for further evaluation. ASSESSMENT: BI-RADS Category 0: Incomplete: Need Additional Imaging Evaluation.
--- NOTE | 2025-04-28 08:18 | XR_ITS ---
FINAL REPORT TECHNIQUE: Bone densitometry calculations of the lumbar spine and left hip were obtained. CLINICAL HISTORY: SCREENING FINDINGS: Using L1-4, the bone mineral density of the spine is 0.837 g/cm2, corresponding to T-score of -1.9. Using the left hip, the bone mineral density of the femoral neck is 0.688 g/cm2, corresponding to a T-score of -2.1. Using the right hip, the bone mineral density of the femoral neck is 0.832 g/cm2, corresponding to a T-score of -0.9. NOTE: T-score: Standard deviation compared with peak bone mass of young adult mean. *Following the recommendations of the International Society of Bone densitometry, classification of hip BMD is based on the lower of two T-scores; total hip or femoral neck. IMPRESSION: Normal bone mineral density of the right hip. Diminished bone mineral density of the lumbar spine and left hip consistent with osteopenia. FRAX was not reported because patient is being treated for osteoporosis. Reviewed, Interpreted and Dictated by Emanuel Ruffin MD Transcribed by Ashlyn Ramirez Authenticated and [facility]
== END 2025-04-28 23:59 | disposition home or self-care (01) ==
LOC: RAD 08:15
PROVIDERS: PCP Family Medicine; Visit Provider Nurse Practitioner Family
DX: Z12.31 Encounter for screening mammogram for malignant neoplasm of breast (principal); M81.0 Age-related osteoporosis without current pathological fracture; R92.323 Mammographic fibroglandular density, bilateral breasts; R92.8 Other abnormal and inconclusive findings on diagnostic imaging of breast; R93.7 Abnormal findings on diagnostic imaging of other parts of musculoskeletal system; Z80.3 Family history of malignant neoplasm of breast
CPT/HCPCS: 77063; 77067; 77080